=== PATIENT | female | born 1985 | race Hispanic/Latino ===

== ENCOUNTER 2018-07-22 12:45 | Emergency (ER) | payer SELFPAY ==
[2018-07-22 13:32] LABS: Urine Specific Gravity 1.015 (1.005-1.030)
[2018-07-22 13:33] LABS: Urine Blood NEGATIVE (NEG); Urine Glucose 2+ (NEG); Urine Protein NEGATIVE (NEG); Urine Specific Gravity 1.015 (1.005-1.030)
[2018-07-22 13:35] LABS: Urine Bacteria <20 /HPF (<20); Urine Culture Reflex Order NOT NEEDED; Urine RBC NONE SEEN /HPF (NONE SEEN)
[2018-07-22] MEDS ORDERED: NA CHLORIDE 0.9% 1,000 ML ONE (13:52)
[2018-07-22 14:05] LABS: Absolute Lymphocytes (CBC) 2.7 K/uL (0.7-4.9); Absolute Monocytes 0.5 K/uL (0.1-1.3); Absolute Neutrophil 7.6 K/uL (1.8-8.0); Basophils % 0.3 % (0-1.3); Eosinophils % 0.4 % (0-4.4); Hematocrit 41.5 % (36.0-45.0); Lymphocytes % 24.8 % (15.3-44.8); MCH 31.6 pg (27.0-35.0); MCV 91.6 fL (80-100); MPV 9.5 fL (7.6-11.3); Monocytes % 4.2 % (3.3-12.3); RBC Red Blood Cell Count 4.53 M/uL (3.86-4.86)
[2018-07-22] MEDS ORDERED: MECLIZINE HCL 12.5 MG TAB ONE (14:05)
[2018-07-22 14:12] LABS: BUN Blood Urea Nitrogen 7 mg/dL (7-18); Bicarbonate 26 mmol/L (21-32); Glucose Level 211 mg/dL (74-106); Potassium 3.6 mmol/L (3.5-5.1); Sodium Level 137 mmol/L (136-145)
[2018-07-22] MEDS ORDERED: DIAZEPAM 2 MG TABLET ONE (14:19)
--- NOTE | 2018-07-22 14:43 | RAD REPORT ---
EXAM DESCRIPTION: CT - Head Brain Wo Cont - 07/22/2018 2:32 pm CLINICAL HISTORY: Syncope/dizzyness/headache COMPARISON: None. TECHNIQUE: Computed axial tomography of the head was obtained. IV contrast was not requested. All CT scans are performed using dose optimization technique as appropriate and may include automated exposure control or mA/KV adjustment according to patient size. FINDINGS: An intracranial bleed is not seen . The ventricles are normal in caliber. No extra-axial fluid collection is noted. Fluid within the sinuses/ mastoids is not seen. IMPRESSION: No acute intracranial abnormality is seen. If patient's symptoms persist MRI of the bra in would be recommended.
--- NOTE | 2018-07-22 14:50 | RAD REPORT ---
EXAM DESCRIPTION: CTHead angio07/22/2018 2:32 pm CLINICAL HISTORY: Syncope / dizziness/headache TECHNIQUE: CT angiogram of the head was obtained. 50 cc Isovue 370 was intravenously. Coronal and sa gittal reconstruction was performed. 3D MIPS reconstruction performed All CT scans are performed using dose optimization technique as appropriate and may include automated exposure control or mA/KV adjustment according to patient size. FINDINGS: The basilar, internal carotid, anterior cerebral, middle cerebral and posterior cerebral a rteries are normal caliber. An aneurysm is not seen. A significant stenosis is not noted. IMPRESSION: Unremarkable CT angiogram head.
[2018-07-22] MEDS ORDERED: KETOROLAC 30 MG/ML INJ ONE (15:59)
[2018-07-22] MEDS ORDERED: METOCLOPRAMIDE 10 MG/2mL INJ ONE (15:59)
--- NOTE | 2018-07-22 16:07 | EDPHYS ---
Physician Documentation [facility] Name: Tiffanie Joyce Age: 33 yrs Sex: Female : 1985 Arrival Date: 07/22/2018 Time: 12:47 Bed 24 Private MD: ED Physician Mukesh Arias HPI: 07/22 14:17 This 33 yrs old Female presents to ER via Ambulatory with complaints of jr8 Dizziness, Nausea. 14:17 The patient presents with dizziness. Onset: The symptoms/episode began/occurred jr8 acutely, today. Context: occurred at home, occurred while the patient was at rest, just prior to the episode the patient experienced no apparent symptoms. Modifying factors: The symptoms are alleviated by nothing, the symptoms are aggravated by movement of head, changing position. Associated signs and symptoms: Pertinent positives: headache. Severity of symptoms: At their worst the symptoms were moderate in the emergency department the symptoms are unchanged. Patient's baseline: Neuro: alert and fully oriented, Motor: no deficits, Ambulation: walks without assistance, Speech: normal. The patient has not experienced similar symptoms in the past. The patient has not recently seen a physician. 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 - Social history:: Smoking status: Patient uses tobacco products, denies chronic smoking, but will smoke occasionally. - Ebola Screening: : Patient denies travel to an Ebola-affected area in the 21 days before illness onset. ROS: 14:17 Eyes: Negative for injury, pain, redness, and discharge, ENT: Negative for injury, jr8 pain, and discharge, Neck: Negative for injury, pain, and swelling, Cardiovascular: Negative for chest pain, palpitations, and edema, Respiratory: Negative for shortness of breath, cough, wheezing, and pleuritic chest pain, Abdomen/GI: Negative for abdominal pain, nausea, vomiting, diarrhea, and constipation, Back: Negative for injury and pain, MS/Extremity: Negative for injury and deformity, Skin: Negative for injury, rash, and discoloration. 14:17 Neuro: Positive for dizziness, headache. Exam: 14:17 Eyes: Pupils equal round and reactive to light, extra-ocular motions intact. Lids and jr8 lashes normal. Conjunctiva and sclera are non-icteric and not injected. Cornea within normal limits. Periorbital areas with no swelling, redness, or edema. ENT: Nares patent. No nasal discharge, no septal abnormalities noted. Tympanic membranes are normal and external auditory canals are clear. Oropharynx with no redness, swelling, or masses, exudates, or evidence of obstruction, uvula midline. Mucous membranes moist. Neck: Trachea midline, no thyromegaly or masses palpated, and no cervical lymphadenopathy. Supple, full range of motion without nuchal rigidity, or vertebral point tenderness. No Meningismus. Cardiovascular: Regular rate and rhythm with a normal S1 and S2. No gallops, murmurs, or rubs. Normal PMI, no JVD. No pulse deficits. Respiratory: Lungs have equal breath sounds bilaterally, clear to auscultation and percussion. No rales, rhonchi or wheezes noted. No increased work of breathing, no retractions or nasal flaring. Abdomen/GI: Soft, non-tender, with normal bowel sounds. No distension or tympany. No guarding or rebound. No evidence of tenderness throughout. Back: No spinal tenderness. No costovertebral tenderness. Full range of motion. Skin: Warm, dry with normal turgor. Normal color with no rashes, no lesions, and no evidence of cellulitis. MS/ Extremity: Pulses equal, no cyanosis. Neurovascular intact. Full, normal range of motion. Neuro: Awake and alert, GCS 15, oriented to person, place, time, and situation. Cranial nerves II-XII grossly intact. Motor strength 5/5 in all extremities. Sensory grossly intact. Cerebellar exam normal. Normal gait. Vital Signs: 13:06 BP 127 / 79; Pulse 81; Resp 18; Temp 97.5; Pulse Ox 99% on R/A; Weight 81.65 kg (R); aj1 Height 5 ft. 4 in. (162.56 cm) (R); Pain 8/10; 15:00 BP 108 / 60; Pulse 83; Resp 15; Pulse Ox 100% on R/A; kr2 16:14 BP 112 / 76; Pulse 79; Pulse Ox 99% on R/A; rv 13:06 Body Mass Index 30.90 (81.65 kg, 162.56 cm) aj1 MDM: 13:14 Patient medically screened. jr8 16:05 Data reviewed: vital signs, nurses notes, lab test result(s), radiologic studies, CT jr8 scan. Data interpreted: Pulse oximetry: on room air is 100 %. Interpretation: normal. Counseling: I had a detailed discussion with the patient and/or guardian regarding: the historical points, exam findings, and any diagnostic results supporting the discharge/admit diagnosis, lab results, radiology results, the need for outpatient follow up, a family practitioner, to return to the emergency department if symptoms worsen or persist or if there are any questions or concerns that arise at home. Response to treatment: the patient's symptoms have markedly improved after treatment. 16:05 Differential diagnosis: cardiac arrhythmia, CVA, idiopathic dizziness, , jr8 vertigo. 07/22 12:56 Order name: Urine Culture snw 07/22 12:56 Order name: Urine Microscopic Only; Complete Time: 13:40 snw 07/22 13:25 Order name: Urine Dipstick--Ancillary (enter results); Complete Time: 13:40 ms 07/22 13:30 Order name: Urine --Ancillary (enter results); Complete Time: 13:40 ms 07/22 13:31 Order name: CBC with Diff; Complete Time: 14:12 jr8 07/22 13:31 Order name: Basic Metabolic Panel; Complete Time: 14:16 jr8 07/22 13:31 Order name: Magnesium; Complete Time: 14:16 jr8 07/22 14:23 Order name: Head angio; Complete Time: 14:53 EDMS 07/22 14:23 Order name: Head Brain Wo Cont; Complete Time: 14:46 EDMS 07/22 12:56 Order name: Urine Test (obtain specimen); Complete Time: 13:19 snw 07/22 12:56 Order name: Urine Dipstick-Ancillary (obtain specimen); Complete Time: 13:19 snw 07/22 13:31 Order name: IV; Complete Time: 13:56 jr8 Administered Medications: 14:00 Drug: NS 0.9% 1000 ml Route: IV; Rate: 1000 ml; Site: right antecubital; kr2 15:30 Follow up: Response: No adverse reaction; IV Status: Completed infusion kr2 14:11 Drug: Meclizine 25 mg Route: PO; kr2 15:13 Follow up: Response: No adverse reaction; Marked relief of symptoms kr2 14:11 CANCELLED (Medication not available): Valium 2 mg IVP once kr2 14:14 Drug: Valium 2 mg Route: PO; kr2 15:12 Follow up: Response: No adverse reaction; Marked relief of symptoms kr2 15:55 Drug: TORadol 30 mg Route: IVP; Site: right antecubital; kr2 16:13 Follow up: Response: No adverse reaction rv 15:55 Drug: Reglan 10 mg Route: IVP; Site: right antecubital; kr2 16:13 Follow up: Response: No adverse reaction rv Disposition: 16:36 Co-signature as Attending Physician, Mukesh Arias MD I agree with the assessment and kdr plan of care. Disposition: 07/22/18 16:06 Discharged to Home. Impression: Vertigo, Migraine. - Condition is Stable. - Discharge Instructions: Migraine Headache, Vertigo. - Prescriptions for Meclizine 25 mg Oral Tablet - take 1 tablet by ORAL route every 8 hours As needed; 30 tablet. - Medication Reconciliation Form, Thank You Letter, Antibiotic Education, Prescription Opioid Use form. - Follow up: Private Physician; When: 2 - 3 days; Reason: Recheck today's complaints, Continuance of care, Re-evaluation by your physician. - Problem is new. - Symptoms have improved. Signatures: Dispatcher [employer] [facility] Agnes Easley RN RN aj1 Mukesh Arias MD MD kdr Therrien, Shelly, HERBARIUM WORKER-C HERBARIUM WORKER-Csnw Samuel Robison PA PA jr8 Goldie Zhou RN RN kr2 Oswaldo Vela, RN RN rv Corrections: (The following items were deleted from the chart) 14:11 13:31 Valium 2 mg IVP once ordered. jr8 ryan2 14:23 13:32 Head Brain W/ Wo Con+CT.RAD.BRZ ordered. [facility] 16:15 16:06 07/22/2018 16:06 Discharged to Home. Impression: Vertigo; Migraine. Condition is rv Stable. Forms are Medication Reconciliation Form, Thank You Letter, Antibiotic Education, Prescription Opioid Use. Follow up: Private Physician; When: 2 - 3 days; Reason: Recheck today's complaints, Continuance of care, Re-evaluation by your physician. Problem is new. Symptoms have improved. jr8
--- NOTE | 2018-07-22 16:07 | ER ---
Nurse's Notes [facility] Name: Tiffanie Joyce Age: 33 yrs Sex: Female : 1985 Arrival Date: 07/22/2018 Time: 12:47 Bed 24 Private MD: Diagnosis: Vertigo;Migraine Presentation: 07/22 13:01 Presenting complaint: Patient states: "I've been really dizzy since this morning, like aj1 6:00 when I woke up, and a lot of nausea, and my head is pounding and nothing takes the pain away." Denies history of previous headache, denies recent head injury or syncopal episode. Reports vomiting. States that she took dramamine this morning to see if would help, but it hasnt. Presenting complaint:. Transition of care: patient was not received from another setting of care. Onset of symptoms was July 22, 2018 at 06:00. Risk Assessment: Do you want to hurt yourself or someone else? Patient reports no desire to harm self or others. Initial Sepsis Screen: Does the patient meet any 2 criteria? No. Patient's initial sepsis screen is negative. Does the patient have a suspected source of infection? No. Patient's initial sepsis screen is negative. Care prior to arrival: None. 13:01 Method Of Arrival: Ambulatory aj1 13:01 Acuity: HOLDEN 3 aj1 Triage Assessment: 13:06 General: Appears in no apparent distress. uncomfortable, Behavior is calm, cooperative, aj1 appropriate for age. Pain: Complains of pain in top of head, occipital area and base of the skull Pain currently is 8 out of 10 on a pain scale. Neuro: Level of Consciousness is awake, alert, obeys commands, Oriented to person, place, time, situation, Moves all extremities. Full function Gait is steady, Speech is normal, Facial symmetry appears normal, Reports dizziness, headache. Cardiovascular: Patient's skin is warm and dry. Respiratory: Airway is patent Respiratory effort is even, unlabored, Respiratory pattern is regular, symmetrical. GI: Reports nausea, vomiting. 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 - Social history:: Smoking status: Patient uses tobacco products, denies chronic smoking, but will smoke occasionally. - Ebola Screening: : Patient denies travel to an Ebola-affected area in the 21 days before illness onset. Screenin:24 Abuse screen: Denies threats or abuse. Denies injuries from another. Nutritional kr2 screening: No deficits noted. Tuberculosis screening: No symptoms or risk factors identified. Fall Risk None identified. Assessment: 13:22 General: Appears in no apparent distress. uncomfortable, well groomed, well developed, kr2 well nourished, Behavior is cooperative, crying. Pain: Complains of pain in forehead Pain radiates to base of the skull and top of head Pain currently is 10 out of 10 on a pain scale. Quality of pain is described as throbbing, Is continuous, Alleviated by nothing. Neuro: Level of Consciousness is awake, alert, obeys commands, Oriented to person, place, time, situation, Appropriate for age Sign Fabricator are equal bilaterally Moves all extremities. Gait is steady, Speech is normal, Facial symmetry appears normal, Pupils are PERRLA, Intact. Cardiovascular: Capillary refill < 3 seconds in bilateral fingers Patient's skin is warm and dry. Respiratory: Airway is patent Respiratory effort is even, unlabored, Respiratory pattern is regular, symmetrical. GI: Abdomen is flat, non-distended, Reports nausea, vomiting. : Denies burning with urination. EENT: Nares are clear bilaterally Oral mucosa is moist. Derm: Skin is intact, is healthy with good turgor, Skin is pink, warm \\T\\ dry. Musculoskeletal: Circulation, motion, and sensation intact. 14:20 Reassessment: Patient appears in no apparent distress at this time. Patient and/or kr2 family updated on plan of care and expected duration. Pain level reassessed. Patient is alert, oriented x 3, equal unlabored respirations, skin warm/dry/pink. Patient states feeling better. 15:11 Reassessment: Patient appears in no apparent distress at this time. Patient and/or kr2 family updated on plan of care and expected duration. Pain level reassessed. Patient is alert, oriented x 3, equal unlabored respirations, skin warm/dry/pink. Patient states symptoms have improved. 16:00 Reassessment: Patient appears in no apparent distress at this time. Patient and/or kr2 family updated on plan of care and expected duration. Pain level reassessed. Patient is alert, oriented x 3, equal unlabored respirations, skin warm/dry/pink. Patient states feeling better. Patient states symptoms have improved. Vital Signs: 13:06 BP 127 / 79; Pulse 81; Resp 18; Temp 97.5; Pulse Ox 99% on R/A; Weight 81.65 kg (R); aj1 Height 5 ft. 4 in. (162.56 cm) (R); Pain 8/10; 15:00 BP 108 / 60; Pulse 83; Resp 15; Pulse Ox 100% on R/A; kr2 16:14 BP 112 / 76; Pulse 79; Pulse Ox 99% on R/A; rv 13:06 Body Mass Index 30.90 (81.65 kg, 162.56 cm) aj1 ED Course: 12:47 Patient arrived in ED. as 13:06 Triage completed. aj1 13:06 Arm band placed on Patient placed in an exam room. aj1 13:14 Samuel Robison PA is PHCP. jr8 13:14 Mukesh Arias MD is Attending Physician. jr8 13:15 Urine collected: clean catch specimen, clear, angelina colored, Amount Voided: 60mL. jp3 13:18 Goldie Zhou, RN is Primary Nurse. kr2 13:24 Patient has correct armband on for positive identification. Bed in low position. Call kr2 light in reach. Side rails up X 1. Pulse ox on. NIBP on. Door closed. Warm blanket given. Head of bed elevated. 13:34 Urine Microscopic Only Sent. jp3 13:34 Urine Culture Sent. jp3 13:45 Initial lab(s) drawn, by me, sent to lab. Inserted saline lock: 22 gauge in right jp3 antecubital area, using aseptic technique. Blood collected. 13:56 Magnesium Sent. jp3 13:56 Basic Metabolic Panel Sent. jp3 13:56 CBC with Diff Sent. jp3 14:[address] mw3 14:31 Head angio In Process Unspecified. EDMS 14:32 Head Brain Wo Cont In Process Unspecified. EDMS 14:32 CT completed. Patient tolerated procedure well. Patient moved back from CT. mw3 16:14 No provider procedures requiring assistance completed. IV discontinued, bleeding rv controlled, No redness/swelling at site. Pressure dressing applied. Administered Medications: 14:00 Drug: NS 0.9% 1000 ml Route: IV; Rate: 1000 ml; Site: right antecubital; kr2 15:30 Follow up: Response: No adverse reaction; IV Status: Completed infusion kr2 14:11 Drug: Meclizine 25 mg Route: PO; kr2 15:13 Follow up: Response: No adverse reaction; Marked relief of symptoms kr2 14:11 CANCELLED (Medication not available): Valium 2 mg IVP once kr2 14:14 Drug: Valium 2 mg Route: PO; kr2 15:12 Follow up: Response: No adverse reaction; Marked relief of symptoms kr2 15:55 Drug: TORadol 30 mg Route: IVP; Site: right antecubital; kr2 16:13 Follow up: Response: No adverse reaction rv 15:55 Drug: Reglan 10 mg Route: IVP; Site: right antecubital; kr2 16:13 Follow up: Response: No adverse reaction rv Outcome: 16:06 Discharge ordered by . leodan 16:15 Discharged to home ambulatory. rv 16:15 Condition: improved 16:15 Discharge instructions given to patient, Instructed on discharge instructions, follow up and referral plans. medication usage, Demonstrated understanding of instructions, follow-up care, medications, Prescriptions given X 1. 16:15 Patient left the ED. rv Signatures: Dispatcher [employer] EDMS Agnes Easley RN RN [email or web address] Katalina Gunn Josh, PA PA jr8 Goldie Zhou RN RN kr2 Vernell Franco mw3 Oswaldo Vela RN RN rv Aaron Graves jp3
== END 2018-07-22 16:15 | disposition home or self-care (01) ==
LOC: ER 12:45
DX: G43.909 Migraine, unspecified, not intractable, without status migrainosus (principal); Z72.0 Tobacco use
CPT/HCPCS: 36415; 70450; 70496; 80048; 81003; 81015; 81025; 83735; 85025; 87086; 87088; 96361; 96374; 96375; 99284; J2765; J7030; Q9967